=== PATIENT | male | born 1960 | race Two or more races ===

== ENCOUNTER 2022-04-08 18:12 | Inpatient (IN) | payer OTHER ==
[~2022-04-08] VITALS: Ht 182.9 cm; Wt 112.4 kg
[2022-04-08] MEDS ORDERED: SODIUM CHLORIDE 0.9% 500 ML IV ONE (20:30)
[2022-04-08] MEDS ORDERED: MORPHINE SULFATE 4 MG/ML SYR/VIAL IV ONE (21:00)
[2022-04-08] MEDS ORDERED: ONDANSETRON HCL 4 MG/2 ML VIAL IV ONE (21:00)
[2022-04-08 21:21] LABS: Basophils # (auto) 0 10 ^3/uL (0-0.2); Basophils % (auto) 0.2 % (0.0-2.0); Eosinophils # (auto) 0 10 ^3/uL (0-0.8); Eosinophils % (auto) 0.3 % (0.0-7.0); Hematocrit 35.6 % (41.0-53.0); Hemoglobin 11.8 g/dL (13.5-17.5); Lymphocytes # (auto) 2.9 10 ^3/uL (0.4-5.4); Lymphocytes % (auto) 27.1 % (10.0-50.0); Mean Corpuscular Hemoglobin 31.8 pg (28.0-32.0); Mean Corpuscular Volume 96.5 fL (80.0-100.0); Monocytes # (auto) 0.7 10 ^3/uL (0-1.3); Neutrophils # (auto) 6.9 10 ^3/uL (1.6-8.6); Neutrophils % (auto) 65.4 % (37.0-80.0); Nucleated Red Blood Cells % 0.1 %; Red Blood Cells 3.69 10^6/uL (4.5-5.90); Red Cell Distribution Width 15.7 % (11.8-14.3); White Blood Cell 10.6 10^3/uL (4.4-10.8)
[2022-04-08 21:34] LABS: INR 0.94 (0.9-1.15); Partial Thromboplastin Time 25.9 sec (24.6-33.4)
[2022-04-08] MEDS ORDERED: PANTOPRAZOLE 40 MG/10 ML VIAL INJ IV ONE (22:00)
[2022-04-08] MEDS ORDERED: AMLO-496 PO (22:41)
[2022-04-08] MEDS ORDERED: ACETAMINOPHEN 325 MG TAB PO PRN (22:45)
[2022-04-08] MEDS ORDERED: DEXTROSE (50%) 50ML SYRG IV PRN (23:00)
[2022-04-08 23:02] LABS: Calcium 9.2 mg/dL (8.5-10.1); Potassium 4.5 mmol/L (3.5-5.1)
[2022-04-08 23:04] LABS: BUN/Creatinine Ratio 29.4
[2022-04-08 23:14] LABS: Bilirubin, Total 0.3 mg/dL (0.2-1.0)
[2022-04-08] MEDS ORDERED: ALBUTEROL SULF 2.5 MG/0.5ML(0.5%) NEB SOLN NEB PRN (23:15)
[2022-04-08 23:22] LABS: Cholesterol 171 mg/dL (< 200); Triglycerides 253 mg/dL (< 150)
[2022-04-08 23:24] LABS: HDL Cholesterol 35 mg/dL (40-59); LDL Cholesterol 111 mg/dL (< 100)
[2022-04-09 01:06] VITALS: BP 111/70
[2022-04-09] MEDS: SODIUM CHLORIDE 0.9% 1,000 ML IV SCH ×2 (03:24→13:03)
[2022-04-09] MEDS: MORPHINE SULFATE INJ 2 MG/ml SYRG IV PRN ×2 (03:24→10:14)
[2022-04-09 03:40] LABS: Urine Bacteria NONE SEEN /hpf (None Seen); Urine Blood Negative /uL (Negative); Urine Mucus FEW (None Seen); Urine Specific Gravity 1.023 (1.001-1.035); Urine WBC 1 /hpf (0 - 3)
[2022-04-09] MEDS: InsuLIN REG 1unit/0.01ml Soln (100units/ml) SC SCH ×3 (06:48→21:51)
[2022-04-09] MEDS: ACCU-CHEK COMFORT CURVE STRIP VI SCH ×4 (06:48→21:49)
[2022-04-09 06:54] LABS: Basophils # (auto) 0 10 ^3/uL (0-0.2); Basophils % (auto) 0.3 % (0.0-2.0); Eosinophils # (auto) 0.1 10 ^3/uL (0-0.8); Eosinophils % (auto) 0.6 % (0.0-7.0); Hematocrit 28.6 % (41.0-53.0); Hemoglobin 9.9 g/dL (13.5-17.5); Lymphocytes # (auto) 2.6 10 ^3/uL (0.4-5.4); Lymphocytes % (auto) 30.2 % (10.0-50.0); Mean Corpuscular Hemoglobin 33.7 pg (28.0-32.0); Mean Corpuscular Hgb Conc. 34.8 g/dL (32.0-36.0); Mean Corpuscular Volume 96.9 fL (80.0-100.0); Monocytes # (auto) 0.6 10 ^3/uL (0-1.3); Monocytes % (auto) 7.3 % (0.0-12.0); Neutrophils # (auto) 5.2 10 ^3/uL (1.6-8.6); Neutrophils % (auto) 61.6 % (37.0-80.0); Nucleated Red Blood Cells % 0.1 %; Red Blood Cells 2.95 10^6/uL (4.5-5.90); Red Cell Distribution Width 15.5 % (11.8-14.3); White Blood Cell 8.5 10^3/uL (4.4-10.8)
[2022-04-09] MEDS ORDERED: PANTOPRAZOLE 40 MG/10 ML VIAL INJ IV SCH (10:00)
[2022-04-09] MEDS: ASCORBIC ACID 500 MG TAB PO SCH ×2 (10:12→21:49)
[2022-04-09] MEDS: MULTIPLE VITAMIN TAB PO SCH (10:12)
[2022-04-09] MEDS: ZINC SULFATE 220mg CAP or TAB PO SCH (10:12)
[2022-04-09] MEDS: PANTOPRAZOLE 40 MG/10 ML VIAL INJ IV SCH ×2 (10:13→21:49)
[2022-04-09 13:00] VITALS: BP 123/75
[2022-04-09] MEDS ORDERED: METOPROLOL TARTRATE 1MG/1ML-5ML VIAL IV ONE (13:30)
[2022-04-09] MEDS ORDERED: METOPROLOL TARTRATE 1MG/1ML-5ML VIAL IV PRN (13:30)
[2022-04-09] MEDS ORDERED: MIDAZOLAM HCL 2MG/2ML 2ml VIAL (1mg/ml) ONE (14:57)
[2022-04-09] MEDS ORDERED: fentaNYL CITRATE 100 MCG/2 ML VL ONE (14:57)
[2022-04-09] MEDS ORDERED: LIDOCAINE 2% (LOCAL ANESTH.) PF 5ml SDV ONE (14:59)
[2022-04-09] MEDS ORDERED: PROPOFOL 10 MG/ML 20 ML IV ONE (14:59)
[2022-04-09] MEDS ORDERED: ONDANSETRON HCL 4 MG/2 ML VIAL ONE (14:59)
[2022-04-09] MEDS ORDERED: ONDANSETRON HCL 4 MG/2 ML VIAL IV PRN (15:00)
[2022-04-09 17:00] VITALS: BP 127/73
[2022-04-09] MEDS: ATORVASTATIN 20 MG TAB PO SCH (21:49)
[2022-04-09 22:00] VITALS: BP 111/66
[2022-04-10] VITALS (34 sets, daily range): BP systolic 96–154; BP diastolic 44–89
[2022-04-10] MEDS: SODIUM CHLORIDE 0.9% 1,000 ML IV SCH ×2 (03:21→17:04)
[2022-04-10 06:25] LABS: Basophils # (auto) 0 10 ^3/uL (0-0.2); Eosinophils # (auto) 0 10 ^3/uL (0-0.8); Monocytes # (auto) 0.6 10 ^3/uL (0-1.3); Neutrophils # (auto) 7.6 10 ^3/uL (1.6-8.6); Red Blood Cells 1.87 10^6/uL (4.5-5.90)
[2022-04-10 06:34] LABS: Basophils % (auto) 0.2 % (0.0-2.0); Eosinophils % (auto) 0.1 % (0.0-7.0); Lymphocytes % (auto) 20.1 % (10.0-50.0); Mean Corpuscular Hemoglobin 33.3 pg (28.0-32.0); Mean Corpuscular Hgb Conc. 34.6 g/dL (32.0-36.0); Mean Corpuscular Volume 96.4 fL (80.0-100.0); Monocytes % (auto) 5.5 % (0.0-12.0); Neutrophils % (auto) 74.1 % (37.0-80.0); Nucleated Red Blood Cells % 0.1 %; Red Cell Distribution Width 15.2 % (11.8-14.3); White Blood Cell 10.2 10^3/uL (4.4-10.8)
[2022-04-10] MEDS: ACCU-CHEK COMFORT CURVE STRIP VI SCH ×4 (06:58→22:27)
[2022-04-10] MEDS: InsuLIN REG 1unit/0.01ml Soln (100units/ml) SC SCH ×4 (07:00→22:00)
[2022-04-10 07:42] LABS: Hemoglobin 6.2 g/dL (13.5-17.5)
[2022-04-10] MEDS: PANTOPRAZOLE 40 MG/10 ML VIAL INJ IV SCH ×2 (09:35→22:26)
[2022-04-10] MEDS: ZINC SULFATE 220mg CAP or TAB PO SCH (09:35)
[2022-04-10] MEDS: ASCORBIC ACID 500 MG TAB PO SCH ×2 (09:36→22:27)
[2022-04-10] MEDS: MULTIPLE VITAMIN TAB PO SCH (09:36)
[2022-04-10 11:54] LABS: Hematocrit 17.9 % (41.0-53.0)
[2022-04-10] MEDS ORDERED: BUPR7.5D TOP (17:23)
[2022-04-10] MEDS ORDERED: METF-370 PO (17:23)
[2022-04-10] MEDS ORDERED: GLIP5TAB12 PO (17:23)
[2022-04-10 18:41] LABS: Hemoglobin 7.7 g/dL (13.5-17.5)
[2022-04-10 18:43] LABS: Hematocrit 22.9 % (41.0-53.0)
[2022-04-10] MEDS ORDERED: METOPROLOL TARTRATE 1MG/1ML-5ML VIAL IV ONE (20:45)
[2022-04-10] MEDS: ATORVASTATIN 20 MG TAB PO SCH (22:27)
[2022-04-11] VITALS (53 sets, daily range): BP systolic 107–158; BP diastolic 44–90
[2022-04-11 01:30] LABS: Hematocrit 17.2 % (41.0-53.0)
[2022-04-11 01:35] LABS: Hemoglobin 5.7 g/dL (13.5-17.5)
[2022-04-11] MEDS: METOPROLOL TARTRATE 1MG/1ML-5ML VIAL IV SCH ×6 (02:00→21:51)
[2022-04-11] MEDS: ACCU-CHEK COMFORT CURVE STRIP VI SCH ×4 (06:46→21:51)
[2022-04-11] MEDS: InsuLIN REG 1unit/0.01ml Soln (100units/ml) SC SCH ×4 (06:49→22:00)
[2022-04-11 09:50] LABS: Basophils # (auto) 0 10 ^3/uL (0-0.2); Basophils % (auto) 0.2 % (0.0-2.0); Eosinophils # (auto) 0 10 ^3/uL (0-0.8); Eosinophils % (auto) 0.1 % (0.0-7.0); Hematocrit 25.5 % (41.0-53.0); Hemoglobin 8.6 g/dL (13.5-17.5); Lymphocytes % (auto) 19.5 % (10.0-50.0); Mean Corpuscular Hemoglobin 28.4 pg (28.0-32.0); Mean Corpuscular Hgb Conc. 33.7 g/dL (32.0-36.0); Mean Corpuscular Volume 84.4 fL (80.0-100.0); Monocytes # (auto) 0.8 10 ^3/uL (0-1.3); Neutrophils # (auto) 7.6 10 ^3/uL (1.6-8.6); Neutrophils % (auto) 72.2 % (37.0-80.0); Nucleated Red Blood Cells % 0.3 %; Red Blood Cells 3.03 10^6/uL (4.5-5.90); Red Cell Distribution Width 20.1 % (11.8-14.3); White Blood Cell 10.5 10^3/uL (4.4-10.8)
[2022-04-11 10:44] LABS: BUN/Creatinine Ratio 32.2; Potassium 4.6 mmol/L (3.5-5.1)
[2022-04-11] MEDS: PANTOPRAZOLE 40 MG/10 ML VIAL INJ IV SCH ×2 (12:53→21:51)
[2022-04-11] MEDS: SODIUM CHLORIDE 0.9% 1,000 ML IV SCH ×2 (12:55→21:51)
[2022-04-11] MEDS: ATORVASTATIN 20 MG TAB PO SCH (21:51)
[2022-04-11] MEDS: KETOROLAC TROMETH 30 MG/ML 1ML VIAL IV PRN (22:03)
[2022-04-12] VITALS (19 sets, daily range): BP systolic 118–154; BP diastolic 59–77
[2022-04-12 00:49] LABS: Hematocrit 19.6 % (41.0-53.0)
[2022-04-12 00:55] LABS: Hemoglobin 6.6 g/dL (13.5-17.5)
[2022-04-12] MEDS: METOPROLOL TARTRATE 1MG/1ML-5ML VIAL IV SCH ×6 (01:57→22:09)
[2022-04-12 02:19] LABS: Eosinophils # (auto) 0 10 ^3/uL (0-0.8); Eosinophils % (auto) 0.3 % (0.0-7.0); Monocytes # (auto) 0.7 10 ^3/uL (0-1.3); White Blood Cell 8.9 10^3/uL (4.4-10.8)
[2022-04-12 02:21] LABS: Basophils # (auto) 0 10 ^3/uL (0-0.2); Basophils % (auto) 0.3 % (0.0-2.0); Hematocrit 19.7 % (41.0-53.0); Lymphocytes # (auto) 2.2 10 ^3/uL (0.4-5.4); Lymphocytes % (auto) 25.1 % (10.0-50.0); Mean Corpuscular Hemoglobin 28.6 pg (28.0-32.0); Mean Corpuscular Hgb Conc. 32.5 g/dL (32.0-36.0); Mean Corpuscular Volume 88.2 fL (80.0-100.0); Monocytes % (auto) 7.5 % (0.0-12.0); Neutrophils # (auto) 5.9 10 ^3/uL (1.6-8.6); Neutrophils % (auto) 66.8 % (37.0-80.0); Nucleated Red Blood Cells % 0.5 %; Red Blood Cells 2.24 10^6/uL (4.5-5.90)
[2022-04-12 02:22] LABS: Red Cell Distribution Width 20.4 % (11.8-14.3)
[2022-04-12 02:23] LABS: Hemoglobin 6.4 g/dL (13.5-17.5)
[2022-04-12 03:36] LABS: BUN/Creatinine Ratio 28.7; Calcium 7.6 mg/dL (8.5-10.1)
[2022-04-12 04:11] LABS: INR 1.06 (0.9-1.15)
[2022-04-12] MEDS: ACCU-CHEK COMFORT CURVE STRIP VI SCH ×4 (06:34→22:09)
[2022-04-12] MEDS: InsuLIN REG 1unit/0.01ml Soln (100units/ml) SC SCH ×4 (06:34→22:00)
[2022-04-12] MEDS ORDERED: IOHEXOL 350 MG/ML 100ML IJ ONE (09:38)
[2022-04-12 09:45] LABS: Hematocrit 25.4 % (41.0-53.0); Hemoglobin 8.6 g/dL (13.5-17.5)
[2022-04-12] MEDS: PANTOPRAZOLE 40 MG/10 ML VIAL INJ IV SCH ×2 (11:12→22:09)
[2022-04-12] MEDS: SODIUM CHLORIDE 0.9% 1,000 ML IV SCH (15:50)
[2022-04-12] MEDS: KETOROLAC TROMETH 30 MG/ML 1ML VIAL IV PRN (18:59)
[2022-04-12] MEDS ORDERED: DOCUSATE SOD 100 MG CAP PO SCH (22:00)
[2022-04-12] MEDS: ATORVASTATIN 20 MG TAB PO SCH (22:08)
[2022-04-13] MEDS: KETOROLAC TROMETH 30 MG/ML 1ML VIAL IV PRN (01:19)
[2022-04-13] MEDS: METOPROLOL TARTRATE 1MG/1ML-5ML VIAL IV SCH ×2 (01:19→05:30)
[2022-04-13] MEDS: SODIUM CHLORIDE 0.9% 1,000 ML IV SCH (04:20)
[2022-04-13 05:00] VITALS: BP 116/70
[2022-04-13] MEDS: ACCU-CHEK COMFORT CURVE STRIP VI SCH (06:14)
[2022-04-13] MEDS: InsuLIN REG 1unit/0.01ml Soln (100units/ml) SC SCH (06:14)
[2022-04-13 06:18] LABS: Basophils # (auto) 0 10 ^3/uL (0-0.2); Basophils % (auto) 0.3 % (0.0-2.0); Eosinophils # (auto) 0.1 10 ^3/uL (0-0.8); Eosinophils % (auto) 0.7 % (0.0-7.0); Hemoglobin 7.3 g/dL (13.5-17.5); Monocytes # (auto) 0.5 10 ^3/uL (0-1.3); Nucleated Red Blood Cells % 0.5 %
[2022-04-13 06:22] LABS: Hematocrit 21.2 % (41.0-53.0); Lymphocytes # (auto) 1.7 10 ^3/uL (0.4-5.4); Lymphocytes % (auto) 23.1 % (10.0-50.0); Mean Corpuscular Hemoglobin 29.2 pg (28.0-32.0); Mean Corpuscular Hgb Conc. 34.4 g/dL (32.0-36.0); Mean Corpuscular Volume 84.8 fL (80.0-100.0); Monocytes % (auto) 7.4 % (0.0-12.0); Neutrophils # (auto) 5.1 10 ^3/uL (1.6-8.6); Neutrophils % (auto) 68.5 % (37.0-80.0); Red Cell Distribution Width 18.8 % (11.8-14.3); White Blood Cell 7.4 10^3/uL (4.4-10.8)
[2022-04-13 09:11] VITALS: BP 115/73
== END 2022-04-13 10:26 | disposition left against medical advice (07) | DRG 241 ==
LOC: EDBD 18:12 → ER 18:12 → OVERFLOW 22:35 → WEST WING 04-09 08:31 → ICU WEST 04-10 15:29 → TELE-EAST 04-12 13:04
PROVIDERS: ADMIT Nurse Practitioner Family; ATTEND Student in an Organized Health Care Education/Training Program
PROC: 0DB68ZX Excision of Stomach, Via Natural or Artificial Opening Endoscopic, Diagnostic (ICD-10-PCS; principal; 2022-04-09 14:53)
PROC: 30233N1 Transfusion of Nonautologous Red Blood Cells into Peripheral Vein, Percutaneous Approach (ICD-10-PCS; 2022-04-10)
PROC: 30233K1 Transfusion of Nonautologous Frozen Plasma into Peripheral Vein, Percutaneous Approach (ICD-10-PCS; 2022-04-10)
DX: K25.4 Chronic or unspecified gastric ulcer with hemorrhage (principal); E11.9 Type 2 diabetes mellitus without complications; K26.4 Chronic or unspecified duodenal ulcer with hemorrhage; E66.01 Morbid (severe) obesity due to excess calories; I10 Essential (primary) hypertension; J45.909 Unspecified asthma, uncomplicated; R00.0 Tachycardia, unspecified; Z53.29 Procedure and treatment not carried out because of patient's decision for other reasons; I25.10 Atherosclerotic heart disease of native coronary artery without angina pectoris; Z20.822 Contact with and (suspected) exposure to COVID-19; D62 Acute posthemorrhagic anemia; I25.2 Old myocardial infarction; Z87.19 Personal history of other diseases of the digestive system; Z98.61 Coronary angioplasty status; Z79.01 Long term (current) use of anticoagulants; Z68.33 Body mass index [BMI] 33.0-33.9, adult
CPT/HCPCS: 36415; 36600; 71045; 74176; 74178; 80048; 80053; 80061; 81001; 82270; 82805; 82962; 83036; 84443; 84484; 85014; 85018; 85025; 85610; 85730; 86850; 86900; 86901; 86920; 87040; 87077; 87081; 87186; 87426; 93005; 93306; 96361; 96374; 96375; 99291; C9113; G0378; J1815; J1885; J2001; J2250; J2405; J2704